=== PATIENT | male | born 1955 | race Caucasian/White ===

== ENCOUNTER 2024-01-07 11:04 | Outpatient (RCR) | payer MEDICARE, OTHER, SELFPAY | END 2024-01-18 23:59 | disposition home or self-care (01) | LOC: CR 11:04 | PROVIDERS: PCP Family Medicine; Visit Provider Internal Medicine Cardiovascular Disease | DX: I21.4 Non-ST elevation (NSTEMI) myocardial infarction (principal); Z51.89 Encounter for other specified aftercare | CPT/HCPCS: S9472 ==

== ENCOUNTER 2024-02-15 08:00 | Outpatient (RCR) | payer MEDICARE, SELFPAY | END 2024-02-17 23:59 | disposition home or self-care (01) | LOC: CR 08:00 | PROVIDERS: PCP Family Medicine; Visit Provider Internal Medicine Cardiovascular Disease | DX: I21.4 Non-ST elevation (NSTEMI) myocardial infarction (principal) | CPT/HCPCS: S9472 ==

== ENCOUNTER 2024-02-19 08:04 | Outpatient (CLI) | payer MEDICARE, OTHER, SELFPAY ==
--- NOTE | 2024-02-19 08:00 | RT.EKG_ITS ---
APPROVED REPORT Exam: Resting ECG Reason for Exam: CAD Patient Location: O HR:63 bpm ECG Measurements Heart Rate 63 AXIS IN 286 P -25 QRSd 171 QRS -65 QT 455 T 21 QTc 466 Conclusion Sinus rhythm...normal P axis, V-rate 50- 99 Prolonged IN interval...IN >220, V-rate 50- 90 RBBB and LAFB...QRSd >120mS, axis(-40,240)
== END 2024-02-19 08:05 | disposition home or self-care (01) ==
LOC: DI.CARD 08:05
PROVIDERS: PCP Family Medicine; Visit Provider Internal Medicine Cardiovascular Disease
DX: I25.10 Atherosclerotic heart disease of native coronary artery without angina pectoris (principal); I48.91 Unspecified atrial fibrillation; I25.810 Atherosclerosis of coronary artery bypass graft(s) without angina pectoris; I10 Essential (primary) hypertension; E78.5 Hyperlipidemia, unspecified; Z98.890 Other specified postprocedural states; Z86.79 Personal history of other diseases of the circulatory system
CPT/HCPCS: 93010

== ENCOUNTER → 2024-02-19 11:17 | Outpatient (BNVA) | payer MEDICARE, SELFPAY | PROVIDERS: PCP Family Medicine; Visit Provider Internal Medicine Cardiovascular Disease | DX: I25.810 Atherosclerosis of coronary artery bypass graft(s) without angina pectoris (principal); I44.0 Atrioventricular block, first degree; E78.5 Hyperlipidemia, unspecified; Z98.890 Other specified postprocedural states; I48.91 Unspecified atrial fibrillation | CPT/HCPCS: 93005; 99203 ==

== ENCOUNTER 2024-03-19 08:49 | Outpatient (RCR) | payer MEDICARE, SELFPAY ==
--- NOTE | 2024-03-14 08:45 | RT.EKG_ITS ---
APPROVED REPORT Exam: Resting ECG Reason for Exam: Rhythm changes Patient Location: O HR:68 bpm ECG Measurements Heart Rate 68 AXIS TN 267 P 7 QRSd 169 QRS -55 QT 450 T 46 QTc 479 Conclusion Sinus rhythm...normal P axis, V-rate 50- 99 Ventricular premature complex...SV complex w/ short R-R interval Prolonged TN interval...TN >220, V-rate 50- 90 RBBB and LAFB...QRSd >120mS, axis(-40,240)
== END 2024-03-19 23:59 | disposition home or self-care (01) ==
LOC: CR 08:49
PROVIDERS: PCP Family Medicine; Visit Provider Internal Medicine Cardiovascular Disease
DX: I21.4 Non-ST elevation (NSTEMI) myocardial infarction (principal); I25.810 Atherosclerosis of coronary artery bypass graft(s) without angina pectoris
CPT/HCPCS: S9472

== ENCOUNTER 2024-03-24 08:06 | Outpatient (RCR) | payer MEDICARE, SELFPAY | END 2024-04-19 23:59 | disposition home or self-care (01) | LOC: CR 08:06 | PROVIDERS: PCP Family Medicine; Visit Provider Internal Medicine Cardiovascular Disease | DX: I21.4 Non-ST elevation (NSTEMI) myocardial infarction (principal); Z51.89 Encounter for other specified aftercare | CPT/HCPCS: S9472 ==

== ENCOUNTER → 2024-05-27 10:27 | Outpatient (BNVA) | payer MEDICARE, SELFPAY | PROVIDERS: PCP Family Medicine; Referring Provider Family Medicine; Visit Provider Internal Medicine Cardiovascular Disease | DX: I25.810 Atherosclerosis of coronary artery bypass graft(s) without angina pectoris (principal) | CPT/HCPCS: 99213 ==

== ENCOUNTER → 2025-02-24 10:34 | Outpatient (BNVA) | payer MEDICARE, SELFPAY | PROVIDERS: PCP Family Medicine; Referring Provider Family Medicine; Visit Provider Internal Medicine Cardiovascular Disease | DX: I25.810 Atherosclerosis of coronary artery bypass graft(s) without angina pectoris (principal); Z98.890 Other specified postprocedural states; Z86.79 Personal history of other diseases of the circulatory system | CPT/HCPCS: 99213 ==